=== PATIENT | female | born 1950 | race Hispanic/Latino ===

== ENCOUNTER 2017-02-10 12:14 | Outpatient (CLI) | payer MEDICARE ==
--- NOTE | 2017-02-13 09:02 | Mammography Report ---
BILATERAL DIGITAL SCREENING MAMMOGRAM with CAD : 02/10/17 12:14:00 CLINICAL: Routine screening. COMPARISON:03/07/16 FINDINGS: The breasts are heterogeneously dense, which may obscure small masses.Stable fibroglandular pattern with scattered bilateral benign calcifications. No mass, architectural distortion or suspicious calcifications. IMPRESSION: No mammographic evidence of malignancy. BI-RADS CATEGORY: 2 -- Benign RECOMMENDATION: Routine mammographic screening in one year. COMMENT: Patient follow-up letters are generated by our [employer] application.
== END 2017-02-10 12:15 | disposition home or self-care (01) ==
LOC: SPVWC 12:14
PROVIDERS: ATTEND Internal Medicine
DX: Z12.31 Encounter for screening mammogram for malignant neoplasm of breast (principal)
CPT/HCPCS: 77067; G0202